=== PATIENT | male | born 1960 | race Caucasian/White ===

== ENCOUNTER 2021-11-16 20:37 | Emergency (ER) | payer OTHER ==
[~2021-11-16] VITALS: Ht 182.9 cm; Wt 83.9 kg
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
--- NOTE | 2021-11-16 21:01 | NUR ---
WOUND CARE DONE TO PT'S HEAD
[2021-11-16] MEDS ORDERED: TDAP [DIPH/PERTUSSIS/TET] 0.5 ML VIAL IM ONE ×2 (21:30→21:34)
[2021-11-16 22:00] VITALS: BP 142/92
--- NOTE | 2021-11-16 22:30 | NUR ---
Patient discharged to home in stable condition. Written and verbal after care instructions given. Patient verbalizes understanding of instruction.
== END 2021-11-16 22:30 | disposition home or self-care (01) ==
LOC: ER 21:22
DX: S01.91XA Laceration without foreign body of unspecified part of head, initial encounter (principal); I10 Essential (primary) hypertension; Z86.69 Personal history of other diseases of the nervous system and sense organs; Z60.2 Problems related to living alone; Y08.89XA Assault by other specified means, initial encounter; Y93.89 Activity, other specified; Y92.89 Other specified places as the place of occurrence of the external cause; Y99.8 Other external cause status
CPT/HCPCS: 70450-TC; 72125-TC; 90715

== ENCOUNTER 2021-12-07 23:00 | Emergency (ER) | payer OTHER ==
[~2021-12-07] VITALS: Ht 182.9 cm; Wt 70.3 kg
[2021-12-07 23:15] VITALS: BP 160/104
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
[2021-12-07] MEDS ORDERED: IBUPROFEN 400 MG TABLET PO ONE (23:30)
[2021-12-07] MEDS ORDERED: IBUPROFEN 400 MG TABLET ONE (23:39)
--- NOTE | 2021-12-08 00:16 | NUR ---
PT OK TO BE DISCHARGED PER DR ALFONSO. Patient discharged in [employer] custody in stable condition. Written and verbal after care instructions given. Patient verbalizes understanding of instruction.Patient is awake and alert to self, day, and place. PT ambulatory with a steady gait
== END 2021-12-08 00:19 ==
LOC: ER 23:08
DX: S09.90XA Unspecified injury of head, initial encounter (principal); Z60.2 Problems related to living alone; W22.8XXA Striking against or struck by other objects, initial encounter; Y93.89 Activity, other specified; Y92.89 Other specified places as the place of occurrence of the external cause; Y99.8 Other external cause status
CPT/HCPCS: 70450-TC; 82962-TC

== ENCOUNTER 2022-01-22 10:45 | Emergency (ER) | payer OTHER ==
[~2022-01-22] VITALS: Ht 182.9 cm; Wt 81.6 kg
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
--- NOTE | 2022-01-22 11:48 | NUR ---
PATIENT IS BEING WHEELED TO CT DEPARTMENT.
--- NOTE | 2022-01-22 12:18 | NUR ---
XRAY DONE AT BEDSIDE.
[2022-01-22] MEDS ORDERED: BACI/NEOM/POLY B OINT PKT 1 UDPKT PACKET ONE (12:21)
[2022-01-22] MEDS ORDERED: LIDOCAINE 1% INJ 50 ML MDV IJ ONE (12:21)
[2022-01-22] MEDS: BACI/NEOM/POLY B OINT PKT 1 UDPKT PACKET TP ONE (12:23)
[2022-01-22] MEDS: LIDOCAINE 1% INJ 50 ML MDV IJ ONE (12:23)
[2022-01-22] MEDS ORDERED: IBUP-1955 PO (14:30)
--- NOTE | 2022-01-22 14:42 | NUR ---
DERMABOND APPLIED BY
--- NOTE | 2022-01-22 14:48 | NUR ---
Patient discharged to half-way in stable condition. Written and verbal after care instructions given. Patient verbalizes understanding of instruction.
[2022-01-22 14:50] VITALS: BP 149/90
== END 2022-01-22 14:50 ==
LOC: ER 10:47
DX: S01.01XA Laceration without foreign body of scalp, initial encounter (principal); M25.532 Pain in left wrist; I10 Essential (primary) hypertension; Z59.00 Homelessness unspecified; Y08.89XA Assault by other specified means, initial encounter; Y93.89 Activity, other specified; Y92.89 Other specified places as the place of occurrence of the external cause; Y99.8 Other external cause status
CPT/HCPCS: 12002; 70450; 73110; 73130; 99284; A6403; J3490